=== PATIENT | female | born 1990 | race African-American/Black ===

== ENCOUNTER 2021-08-10 17:25 | Inpatient (IN) | payer OTHER ==
[2021-08-10 18:29] VITALS: BMI 34.0
[2021-08-10] MEDS ORDERED: MAGNESIUM CITRATE 300 ML BOTTLE PO PRN (19:34)
[2021-08-10] MEDS ORDERED: MENTHOL/PHENOL 1 EACH UD MM PRN (19:34)
[2021-08-10] MEDS ORDERED: MAGNESIUM HYDROX 2400MG/30ML ORAL SUSPENSION 30 ML CUP PO PRN (19:34)
[2021-08-10] MEDS ORDERED: MAG HYDROX/AL HYDROX/SIMETH 30 ML UNIT-DOSE CUP PO PRN (19:34)
[2021-08-10] MEDS ORDERED: BISMUTH SUBSALICYLATE 524 MG/30 ML PO PRN (19:34)
[2021-08-10] MEDS ORDERED: ONDANSETRON *ODT* 4 MG TABLET SL PRN (19:34)
[2021-08-10] MEDS ORDERED: IBUPROFEN 400 MG TABLET (FP) PO PRN (19:34)
[2021-08-10] MEDS ORDERED: ACETAMINOPHEN 325 MG TABLET (FP) PO PRN ×2 (19:34)
[2021-08-10] MEDS ORDERED: NICOTINE 10 MG CARTRIDGE (INHALER) IH PRN (19:34)
[2021-08-10] MEDS ORDERED: chlordiazePOXIDE HCL 25 MG CAPSULE ONE (21:07)
[2021-08-10] MEDS: chlordiazePOXIDE HCL 25 MG CAPSULE PO PRN (21:12)
[2021-08-10] MEDS: hydrOXYzine PAMOATE 25 MG CAPSULE (FP) PO SCH (22:52)
[2021-08-10] MEDS: METHOCARBAMOL 500 MG TABLET PO PRN (22:52)
[2021-08-10] MEDS: chlordiazePOXIDE HCL 25 MG CAPSULE PO SCH (22:53)
[2021-08-10] MEDS: THIAMINE HCL 100 MG TABLET (FP) PO SCH (22:53)
[2021-08-10] MEDS: MELATONIN 5 MG TABLETS PO SCH (22:59)
[2021-08-11] MEDS: hydrOXYzine PAMOATE 25 MG CAPSULE (FP) PO SCH ×5 (05:29→22:21)
[2021-08-11] MEDS: chlordiazePOXIDE HCL 25 MG CAPSULE PO SCH ×4 (05:29→22:21)
[2021-08-11] MEDS: PRENATAL VITAMINS W/ FOLIC ACID TABLET (FP) PO SCH (10:06)
[2021-08-11 10:32] LABS: HEMATOCRIT 38.7 % (32.4-45.2); HEMOGLOBIN 12.8 GM/dL (10.7-15.3); MCH 29.1 pg (25.7-33.7); MCHC 33.1 g/dl (32.0-36.0); MEAN PLT VOLUME 8.1 fl (7.5-11.1); PLATELET COUNT 315 10^3/uL (134-434); RBC 4.39 M/mm3 (3.60-5.2); RDW 14.5 % (11.6-15.6); WHITE BLOOD COUNT 4.4 K/mm3 (4.0-10.0)
[2021-08-11 10:42] LABS: CALCIUM 9.3 mg/dL (8.5-10.1)
[2021-08-11 10:43] LABS: ALBUMIN 4.2 g/dl (3.4-5.0); BLOOD UREA NITROGEN 3.8 mg/dL (7-18)
[2021-08-11 10:46] LABS: CREATININE 0.8 mg/dL (0.55-1.3)
[2021-08-11 10:48] LABS: BILIRUBIN,TOTAL 1.3 mg/dL (0.2-1); TOT PROT 7.9 g/dl (6.4-8.2)
[2021-08-11] MEDS: GABAPENTIN 100 MG CAPSULE PO SCH ×2 (14:29→22:21)
[2021-08-11] MEDS: METHOCARBAMOL 500 MG TABLET PO PRN (22:21)
[2021-08-11] MEDS: MELATONIN 5 MG TABLETS PO SCH (22:21)
[2021-08-11] MEDS: THIAMINE HCL 100 MG TABLET (FP) PO SCH (22:21)
[2021-08-12] MEDS: GABAPENTIN 100 MG CAPSULE PO SCH ×3 (05:44→22:03)
[2021-08-12] MEDS: hydrOXYzine PAMOATE 25 MG CAPSULE (FP) PO SCH ×5 (05:44→22:03)
[2021-08-12] MEDS: METHOCARBAMOL 500 MG TABLET PO PRN ×3 (05:45→22:04)
[2021-08-12] MEDS: chlordiazePOXIDE HCL 25 MG CAPSULE PO SCH ×4 (05:45→22:04)
[2021-08-12] MEDS: PRENATAL VITAMINS W/ FOLIC ACID TABLET (FP) PO SCH (10:07)
[2021-08-12] MEDS: chlordiazePOXIDE HCL 25 MG CAPSULE PO PRN (13:36)
[2021-08-12] MEDS: THIAMINE HCL 100 MG TABLET (FP) PO SCH (22:03)
[2021-08-12] MEDS: MELATONIN 5 MG TABLETS PO SCH (22:04)
[2021-08-13] MEDS ORDERED: chlordiazePOXIDE HCL 10 MG CAPSULE PO PRN
[2021-08-13] MEDS: GABAPENTIN 100 MG CAPSULE PO SCH ×3 (06:23→22:27)
[2021-08-13] MEDS: chlordiazePOXIDE HCL 10 MG CAPSULE PO SCH ×4 (06:23→22:28)
[2021-08-13] MEDS: hydrOXYzine PAMOATE 25 MG CAPSULE (FP) PO SCH ×5 (06:23→22:27)
[2021-08-13] MEDS: METHOCARBAMOL 500 MG TABLET PO PRN ×3 (06:25→22:28)
[2021-08-13] MEDS: PRENATAL VITAMINS W/ FOLIC ACID TABLET (FP) PO SCH (10:45)
[2021-08-13] MEDS: THIAMINE HCL 100 MG TABLET (FP) PO SCH (22:27)
[2021-08-13] MEDS: MELATONIN 5 MG TABLETS PO SCH (22:27)
[2021-08-14] MEDS: GABAPENTIN 100 MG CAPSULE PO SCH ×3 (06:10→22:31)
[2021-08-14] MEDS: chlordiazePOXIDE HCL 10 MG CAPSULE PO SCH ×2 (06:11→17:49)
[2021-08-14] MEDS: METHOCARBAMOL 500 MG TABLET PO PRN ×3 (06:11→22:32)
[2021-08-14] MEDS: hydrOXYzine PAMOATE 25 MG CAPSULE (FP) PO SCH ×2 (06:11→10:29)
[2021-08-14] MEDS: PRENATAL VITAMINS W/ FOLIC ACID TABLET (FP) PO SCH (10:29)
[2021-08-14] MEDS: hydrOXYzine PAMOATE 25 MG CAPSULE (FP) PO PRN ×2 (11:10→22:31)
[2021-08-14] MEDS: MELATONIN 5 MG TABLETS PO SCH (22:32)
[2021-08-14] MEDS: THIAMINE HCL 100 MG TABLET (FP) PO SCH (22:32)
[2021-08-15] MEDS ORDERED: chlordiazePOXIDE HCL 10 MG CAPSULE PO ONE (05:00)
[2021-08-15] MEDS: GABAPENTIN 100 MG CAPSULE PO SCH (06:07)
[2021-08-15] MEDS: METHOCARBAMOL 500 MG TABLET PO PRN (06:07)
[2021-08-15] MEDS: PRENATAL VITAMINS W/ FOLIC ACID TABLET (FP) PO SCH (10:31)
[2021-08-15] MEDS: hydrOXYzine PAMOATE 25 MG CAPSULE (FP) PO PRN (10:32)
[2021-08-15 12:55] VITALS: BP 128/87; PULSE 64; TEMP 97.3
== END 2021-08-15 13:27 | disposition home or self-care (01) | DRG 775 ==
LOC: YASAS 17:25 → Y3N 22:00
PROVIDERS: ADMIT Allergy & Immunology; ATTEND Allergy & Immunology
PROC: HZ2ZZZZ Detoxification Services for Substance Abuse Treatment (ICD-10-PCS; principal; 2021-08-10)
DX: F10.230 Alcohol dependence with withdrawal, uncomplicated (principal); F12.10 Cannabis abuse, uncomplicated; F41.8 Other specified anxiety disorders; F32.A Depression, unspecified; F10.24 Alcohol dependence with alcohol-induced mood disorder; E66.9 Obesity, unspecified; Z68.34 Body mass index [BMI] 34.0-34.9, adult; Z72.0 Tobacco use
CPT/HCPCS: 36415; 80053; 85027; 86780; C9803; U0003; U0005

== ENCOUNTER 2021-11-01 13:48 | Inpatient (IN) | payer OTHER ==
[2021-11-01] MEDS ORDERED: MAGNESIUM HYDROX 2400MG/30ML ORAL SUSPENSION 30 ML CUP PO PRN (14:14)
[2021-11-01] MEDS ORDERED: ACETAMINOPHEN 325 MG TABLET (FP) PO PRN (14:14)
[2021-11-01] MEDS ORDERED: MAGNESIUM CITRATE 300 ML BOTTLE PO PRN (14:14)
[2021-11-01] MEDS ORDERED: NICOTINE 10 MG CARTRIDGE (INHALER) IH PRN (14:14)
[2021-11-01] MEDS ORDERED: P-EPHED 60MG/TRIPROLIDI 2.5MG TABLET PO PRN (14:14)
[2021-11-01] MEDS ORDERED: LOPERAMIDE HCL 2 MG CAPSULE PO PRN (14:14)
[2021-11-01] MEDS ORDERED: guaiFENesin 200 MG/10 ML 10 ML UNIT-DOSE CUPS PO PRN (14:14)
[2021-11-01] MEDS ORDERED: IBUPROFEN 400 MG TABLET (FP) PO PRN (14:14)
[2021-11-01] MEDS ORDERED: MAG HYDROX/AL HYDROX/SIMETH 30 ML UNIT-DOSE CUP PO PRN (14:14)
[2021-11-01] MEDS ORDERED: PATIENT'S OWN MEDICATION (NON-FORMULARY) (Hydroxyzine Hcl [Hydroxyzine Hcl] 25 MG Tablet) PO PRN (14:17)
[2021-11-01 14:20] VITALS: BMI 37.2
[2021-11-01 17:07] LABS: HEMATOCRIT 32.7 % (32.4-45.2); HEMOGLOBIN 10.9 GM/dL (10.7-15.3); MCH 30.1 pg (25.7-33.7); MCHC 33.2 g/dl (32.0-36.0); MEAN CELL VOLUME 90.7 fl (80-96); MEAN PLT VOLUME 8.4 fl (7.5-11.1); PLATELET COUNT 302 10^3/uL (134-434); RBC 3.61 M/mm3 (3.60-5.2); RDW 15.6 % (11.6-15.6)
[2021-11-01 17:18] LABS: CALCIUM 8.8 mg/dL (8.5-10.1)
[2021-11-01 17:19] LABS: ALBUMIN 3.7 g/dl (3.4-5.0); BLOOD UREA NITROGEN 9.3 mg/dL (7-18)
[2021-11-01 17:21] LABS: CREATININE 0.7 mg/dL (0.55-1.3)
[2021-11-01 17:22] LABS: BILIRUBIN,TOTAL 0.6 mg/dL (0.2-1); TOT PROT 6.9 g/dl (6.4-8.2)
[2021-11-01 17:38] LABS: SYPHILIS W/ RPR CONF NON-REACTIVE (NONREACTIVE)
[2021-11-02] MEDS: MELATONIN 5 MG TABLETS PO SCH ×2 (00:31→21:18)
[2021-11-02] MEDS: hydrOXYzine PAMOATE 25 MG CAPSULE (FP) PO SCH ×7 (00:31→21:18)
[2021-11-02] MEDS: THIAMINE HCL 100 MG TABLET (FP) PO SCH ×2 (00:31→21:17)
[2021-11-02] MEDS: NICOTINE 7 MG/24 HOURS TOPICAL PATCH TD SCH ×2 (00:32→09:43)
[2021-11-02] MEDS: PRENATAL VITAMINS W/ FOLIC ACID TABLET (FP) PO SCH ×2 (00:32→09:43)
[2021-11-02] MEDS: GABAPENTIN 100 MG CAPSULE PO SCH (21:17)
[2021-11-02] MEDS: traZODone HCL 50 MG TABLET (FP) PO SCH (21:17)
[2021-11-03] MEDS: hydrOXYzine PAMOATE 25 MG CAPSULE (FP) PO SCH ×5 (06:51→21:37)
[2021-11-03] MEDS: PRENATAL VITAMINS W/ FOLIC ACID TABLET (FP) PO SCH (10:08)
[2021-11-03] MEDS: NICOTINE 7 MG/24 HOURS TOPICAL PATCH TD SCH (10:09)
[2021-11-03] MEDS: GABAPENTIN 100 MG CAPSULE PO SCH ×2 (10:09→21:36)
[2021-11-03] MEDS: MELATONIN 5 MG TABLETS PO SCH (21:36)
[2021-11-03] MEDS: traZODone HCL 50 MG TABLET (FP) PO SCH (21:36)
[2021-11-03] MEDS: THIAMINE HCL 100 MG TABLET (FP) PO SCH (21:37)
[2021-11-04] MEDS: hydrOXYzine PAMOATE 25 MG CAPSULE (FP) PO SCH ×5 (06:16→21:41)
[2021-11-04] MEDS: NICOTINE 7 MG/24 HOURS TOPICAL PATCH TD SCH (10:19)
[2021-11-04] MEDS: GABAPENTIN 100 MG CAPSULE PO SCH ×2 (10:19→21:41)
[2021-11-04] MEDS: PRENATAL VITAMINS W/ FOLIC ACID TABLET (FP) PO SCH (10:19)
[2021-11-04 10:27] LABS: URINE APPEARANCE CLOUDY; URINE BILIRUBIN NEGATIVE (NEGATIVE); URINE COLOR YELLOW; URINE GLUCOSE (UA) NEGATIVE (NEGATIVE); URINE KETONE NEGATIVE (NEGATIVE); URINE LEUK ESTERASE NEGATIVE (NEGATIVE); URINE NITRITE NEGATIVE (NEGATIVE); URINE PROTEIN NEGATIVE (NEGATIVE); URINE UROBILINOGEN 0.2 mg/dL (0.2-1.0)
[2021-11-04] MEDS: MELATONIN 5 MG TABLETS PO SCH (21:41)
[2021-11-04] MEDS: traZODone HCL 50 MG TABLET (FP) PO SCH (21:41)
[2021-11-04] MEDS: THIAMINE HCL 100 MG TABLET (FP) PO SCH (21:41)
[2021-11-05] MEDS: hydrOXYzine PAMOATE 25 MG CAPSULE (FP) PO SCH ×5 (08:13→21:38)
[2021-11-05] MEDS: GABAPENTIN 100 MG CAPSULE PO SCH ×2 (10:27→21:38)
[2021-11-05] MEDS: PRENATAL VITAMINS W/ FOLIC ACID TABLET (FP) PO SCH (10:27)
[2021-11-05] MEDS: NICOTINE 7 MG/24 HOURS TOPICAL PATCH TD SCH (10:28)
[2021-11-05] MEDS: THIAMINE HCL 100 MG TABLET (FP) PO SCH (21:38)
[2021-11-05] MEDS: MELATONIN 5 MG TABLETS PO SCH (21:38)
[2021-11-05] MEDS: traZODone HCL 50 MG TABLET (FP) PO SCH (21:38)
[2021-11-06 00:06] LABS: SARS-CoV-2 NAA Not Detected (Not Detected)
[2021-11-06] MEDS: hydrOXYzine PAMOATE 25 MG CAPSULE (FP) PO SCH ×2 (07:03→10:14)
[2021-11-06] MEDS: GABAPENTIN 100 MG CAPSULE PO SCH ×2 (10:13→21:24)
[2021-11-06] MEDS: PRENATAL VITAMINS W/ FOLIC ACID TABLET (FP) PO SCH (10:13)
[2021-11-06] MEDS: NICOTINE 7 MG/24 HOURS TOPICAL PATCH TD SCH (10:13)
[2021-11-06] MEDS: MELATONIN 5 MG TABLETS PO SCH (21:24)
[2021-11-06] MEDS: traZODone HCL 50 MG TABLET (FP) PO SCH (21:24)
[2021-11-06] MEDS: THIAMINE HCL 100 MG TABLET (FP) PO SCH (21:24)
[2021-11-07] MEDS: PRENATAL VITAMINS W/ FOLIC ACID TABLET (FP) PO SCH (10:24)
[2021-11-07] MEDS: GABAPENTIN 100 MG CAPSULE PO SCH ×2 (10:24→21:39)
[2021-11-07] MEDS: NICOTINE 7 MG/24 HOURS TOPICAL PATCH TD SCH (10:24)
[2021-11-07] MEDS: MELATONIN 5 MG TABLETS PO SCH (21:39)
[2021-11-07] MEDS: THIAMINE HCL 100 MG TABLET (FP) PO SCH (21:39)
[2021-11-07] MEDS: traZODone HCL 50 MG TABLET (FP) PO SCH (21:39)
[2021-11-08] MEDS: PRENATAL VITAMINS W/ FOLIC ACID TABLET (FP) PO SCH (10:31)
[2021-11-08] MEDS: NICOTINE 7 MG/24 HOURS TOPICAL PATCH TD SCH (10:31)
[2021-11-08] MEDS: hydrOXYzine PAMOATE 25 MG CAPSULE (FP) PO PRN (10:32)
[2021-11-08] MEDS: GABAPENTIN 100 MG CAPSULE PO SCH ×2 (10:32→21:38)
[2021-11-08] MEDS: traZODone HCL 50 MG TABLET (FP) PO SCH (21:38)
[2021-11-08] MEDS: MELATONIN 5 MG TABLETS PO SCH (21:38)
[2021-11-08] MEDS: THIAMINE HCL 100 MG TABLET (FP) PO SCH (21:38)
[2021-11-09] MEDS: hydrOXYzine PAMOATE 25 MG CAPSULE (FP) PO PRN ×2 (10:31→21:10)
[2021-11-09] MEDS: GABAPENTIN 100 MG CAPSULE PO SCH ×2 (10:31→21:10)
[2021-11-09] MEDS: PRENATAL VITAMINS W/ FOLIC ACID TABLET (FP) PO SCH (10:31)
[2021-11-09] MEDS: NICOTINE 7 MG/24 HOURS TOPICAL PATCH TD SCH (11:09)
[2021-11-09] MEDS: THIAMINE HCL 100 MG TABLET (FP) PO SCH (21:10)
[2021-11-09] MEDS: MELATONIN 5 MG TABLETS PO SCH (21:10)
[2021-11-09] MEDS: traZODone HCL 50 MG TABLET (FP) PO SCH (21:10)
[2021-11-10] MEDS: PRENATAL VITAMINS W/ FOLIC ACID TABLET (FP) PO SCH (10:40)
[2021-11-10] MEDS: GABAPENTIN 100 MG CAPSULE PO SCH ×2 (10:40→21:36)
[2021-11-10] MEDS: hydrOXYzine PAMOATE 25 MG CAPSULE (FP) PO PRN (10:40)
[2021-11-10] MEDS: NICOTINE 7 MG/24 HOURS TOPICAL PATCH TD SCH (10:41)
[2021-11-10] MEDS: traZODone HCL 50 MG TABLET (FP) PO SCH (21:36)
[2021-11-10] MEDS: MELATONIN 5 MG TABLETS PO SCH (21:36)
[2021-11-10] MEDS: THIAMINE HCL 100 MG TABLET (FP) PO SCH (21:36)
[2021-11-11] MEDS: PRENATAL VITAMINS W/ FOLIC ACID TABLET (FP) PO SCH (10:25)
[2021-11-11] MEDS: NICOTINE 7 MG/24 HOURS TOPICAL PATCH TD SCH (10:25)
[2021-11-11] MEDS: hydrOXYzine PAMOATE 25 MG CAPSULE (FP) PO PRN ×2 (10:26→21:35)
[2021-11-11] MEDS: GABAPENTIN 100 MG CAPSULE PO SCH ×2 (10:26→21:34)
[2021-11-11] MEDS: traZODone HCL 50 MG TABLET (FP) PO SCH (21:34)
[2021-11-11] MEDS: MELATONIN 5 MG TABLETS PO SCH (21:35)
[2021-11-11] MEDS: THIAMINE HCL 100 MG TABLET (FP) PO SCH (21:35)
[2021-11-12] MEDS: PRENATAL VITAMINS W/ FOLIC ACID TABLET (FP) PO SCH (10:03)
[2021-11-12] MEDS: GABAPENTIN 100 MG CAPSULE PO SCH ×2 (10:03→21:40)
[2021-11-12] MEDS: NICOTINE 7 MG/24 HOURS TOPICAL PATCH TD SCH (10:03)
[2021-11-12] MEDS: THIAMINE HCL 100 MG TABLET (FP) PO SCH (21:40)
[2021-11-12] MEDS: traZODone HCL 50 MG TABLET (FP) PO SCH (21:40)
[2021-11-12] MEDS: hydrOXYzine PAMOATE 25 MG CAPSULE (FP) PO PRN (21:41)
[2021-11-12] MEDS: MELATONIN 5 MG TABLETS PO SCH (21:41)
[2021-11-13] MEDS: hydrOXYzine PAMOATE 25 MG CAPSULE (FP) PO PRN (10:04)
[2021-11-13] MEDS: PRENATAL VITAMINS W/ FOLIC ACID TABLET (FP) PO SCH (10:04)
[2021-11-13] MEDS: GABAPENTIN 100 MG CAPSULE PO SCH ×2 (10:04→21:37)
[2021-11-13] MEDS: NICOTINE 7 MG/24 HOURS TOPICAL PATCH TD SCH (10:04)
[2021-11-13] MEDS: THIAMINE HCL 100 MG TABLET (FP) PO SCH (21:37)
[2021-11-13] MEDS: traZODone HCL 50 MG TABLET (FP) PO SCH (21:37)
[2021-11-13] MEDS: MELATONIN 5 MG TABLETS PO SCH (21:37)
[2021-11-14 07:11] VITALS: BP 129/78; PULSE 91; TEMP 97.7
[2021-11-14] MEDS: GABAPENTIN 100 MG CAPSULE PO SCH (09:25)
[2021-11-14] MEDS: PRENATAL VITAMINS W/ FOLIC ACID TABLET (FP) PO SCH (09:25)
[2021-11-14] MEDS: NICOTINE 7 MG/24 HOURS TOPICAL PATCH TD SCH (09:26)
== END 2021-11-14 09:47 | disposition home or self-care (01) | DRG 772 ==
LOC: YASAS 13:48 → Y5N 19:33
PROVIDERS: ADMIT Allergy & Immunology; ATTEND Allergy & Immunology
PROC: HZ42ZZZ Group Counseling for Substance Abuse Treatment, Cognitive-Behavioral (ICD-10-PCS; principal; 2021-11-01)
DX: F10.20 Alcohol dependence, uncomplicated (principal); F12.10 Cannabis abuse, uncomplicated; F17.210 Nicotine dependence, cigarettes, uncomplicated; F10.24 Alcohol dependence with alcohol-induced mood disorder; F41.9 Anxiety disorder, unspecified; I10 Essential (primary) hypertension; E66.9 Obesity, unspecified; Z68.37 Body mass index [BMI] 37.0-37.9, adult
CPT/HCPCS: 36415; 80053; 81003; 85027; 86780; 86803; 93005; 93010; C9803-CS; U0003; U0005